=== PATIENT | male | born 1945 | race Caucasian/White ===

== ENCOUNTER 2021-04-06 18:53 | Emergency (ER) | payer OTHER ==
[2021-04-06 19:25] VITALS: BP 151/96; PULSE 73; BMI 27.0
[2021-04-06] MEDS ORDERED: ACETAMINOPHEN 1000 MG/100 ML BAG IVPB ONE (19:55)
[2021-04-06] MEDS ORDERED: ACETAMINOPHEN INJECTION 100 ML IVPB ONE (20:25)
[2021-04-06 20:41] LABS: BASO % 0.6 % (0-2.0); EOS % 2.8 % (0-4.5); HEMATOCRIT 38.4 % (35.4-49); HEMOGLOBIN 13.2 GM/dL (11.7-16.9); LYMPH % 13.7 % (8-40); MCH 31.1 pg (25.7-33.7); MCHC 34.5 g/dl (32.0-35.9); MEAN CELL VOLUME 90.1 fl (80-96); MEAN PLT VOLUME 7.8 fl (7.5-11.1); MONO % 6.7 % (3.8-10.2); NEUT % 76.2 % (42.8-82.8); PLATELET COUNT 227 10^3/uL (134-434); RBC 4.26 M/mm3 (4.00-5.60); RDW 12.9 % (11.9-15.9); WHITE BLOOD COUNT 11.1 K/mm3 (4.0-10.0)
[2021-04-06 21:05] LABS: CALCIUM 9.2 mg/dL (8.5-10.1)
[2021-04-06 21:06] LABS: ALBUMIN 4.2 g/dl (3.4-5.0)
[2021-04-06 21:09] LABS: CREATININE 1.1 mg/dL (0.55-1.3)
[2021-04-06 21:10] LABS: BILIRUBIN,TOTAL 0.8 mg/dL (0.2-1); TOT PROT 6.8 g/dl (6.4-8.2)
[2021-04-06] MEDS ORDERED: DIPHTH,PERTUSS(ACELL),TET 0.5 ML DISP.SYRIN IM ONE ×2 (21:30→21:48)
== END 2021-04-07 00:35 | disposition home or self-care (01) ==
LOC: JER 18:53
PROC: 0HQ1XZZ Repair Face Skin, External Approach (ICD-10-PCS; principal; 2021-04-06)
PROC: 3E0333Z Introduction of Anti-inflammatory into Peripheral Vein, Percutaneous Approach (ICD-10-PCS; 2021-04-06)
PROC: 3E0234Z Introduction of Serum, Toxoid and Vaccine into Muscle, Percutaneous Approach (ICD-10-PCS; 2021-04-06)
DX: S01.81XA Laceration without foreign body of other part of head, initial encounter (principal); W01.0XXA Fall on same level from slipping, tripping and stumbling without subsequent striking against object, initial encounter
CPT/HCPCS: 12002-25; 36415; 70450-TC; 70486-TC; 71045-TC-FY; 72125-TC; 80053; 84484; 85025; 90471; 90715; 93005; 93010; 96374; 99285-25

== ENCOUNTER 2021-04-13 14:36 | Emergency (ER) | payer OTHER, BC ==
[2021-04-13 15:01] VITALS: BP 146/63; PULSE 66; TEMP 98.1; BMI 27.3
== END 2021-04-13 16:24 | disposition home or self-care (01) ==
LOC: JERFT 14:36
DX: Z48.02 Encounter for removal of sutures (principal)
CPT/HCPCS: 99281-25